=== PATIENT | female | born 1975 | race Hispanic/Latino ===

== ENCOUNTER → 2022-05-27 | Day surgery (SDC) | payer OTHER ==
[~2022-05-27] MED LIST: FENTANYL CITRATE/PF 100MCG/2 ML INJ ONE; HYOSCYAMINE SULFATE 0.5 MG/ML INJ ONE; LACTATED RINGER'S 1,000 ML ONE; LIDOCAINE HCL 2% LOCAL INJ 5 ML SDV VIAL INJ ONE; MIDAZOLAM HCL 2 MG/2 ML VIAL ONE; PROPOFOL IV EMULSION 10 MG/ML 20 ML VIAL ONE
[2022-05-27 10:42] VITALS: BP 124/86
== END | disposition home or self-care (01) ==
LOC: OR 07:50
PROVIDERS: ATTEND Internal Medicine Gastroenterology
DX: K29.70 Gastritis, unspecified, without bleeding (principal); K20.90 Esophagitis, unspecified without bleeding; K21.9 Gastro-esophageal reflux disease without esophagitis; K64.8 Other hemorrhoids; J30.2 Other seasonal allergic rhinitis
CPT/HCPCS: 43239; 45378; 81025; C9113; J1980; J2001; J2250; J2704; J3010; J7121